=== PATIENT | female | born 1970 | race Two or more races ===

== ENCOUNTER 2018-12-06 20:37 | Emergency (ER) | payer OTHER ==
--- NOTE | 2018-12-06 21:03 | PDOC ---
History of Present Illness - General Chief Complaint: Alcohol intoxication Stated Complaint: FALL Time Seen by Provider: 12/06/18 21:02 - History of Present Illness Initial Comments: 12/06/18 21:02 . Medical Decision Making - Medical Decision Making 12/06/18 21:02 . *DC/Admit/Observation/Transfer - Referrals - Patient Instructions Printed Discharge Instructions: DI for Alcohol Abuse - Post Discharge Activity
--- NOTE | 2018-12-06 21:10 | PDOC ---
History of Present Illness - General Chief Complaint: Alcohol intoxication Stated Complaint: FALL Time Seen by Provider: 12/06/18 21:02 - History of Present Illness Initial Comments: 12/06/18 21:43 48f with no pmh presetns to the ED after slipping and falling on her face and right knee while inebriated. Doesn't usually abuse alcohol, (used to in the past) but casa admits to drinkin 4-5 cups of homemade potent punch of the fruit variety. Has multiple abrasions over the fight cheekbone and nose. Able to stand without pain. Laughs inappropriately. Past History - Past Medical History Allergies/Adverse Reactions: Allergies Allergy/AdvReac Type Severity Reaction Status Date / Time No Known Allergies Allergy Verified 12/06/18 21:35 Review of Systems - Review of Systems Able to Perform ROS?: Yes (intoxicated. ) Is the patient limited Gabonese proficient: No Constitutional: No: Symptoms Reported HEENTM: No: Symptoms Reported Respiratory: No: Symptoms reported Cardiac (ROS): No: Symptoms Reported ABD/GI: No: Symptoms Reported : No: Symptoms Reported Musculoskeletal: No: Symptoms Reported Integumentary: Yes: See HPI Neurological: Yes: See HPI All Other Systems: Reviewed and Negative *Physical Exam - Physical Exam General Appearance: Yes: Nourished, Appropriately Dressed, Intoxicated. No: Apparent Distress HEENT: positive: EOMI, RASHMI, Normal ENT Inspection Respiratory/Chest: positive: Lungs Clear, Normal Breath Sounds. negative: Chest Tender, Respiratory Distress Cardiovascular: positive: Regular Rhythm, Regular Rate, S1, S2 Musculoskeletal: positive: Normal Inspection. negative: CVA Tenderness Integumentary: positive: Normal Color, Dry, Warm ED Treatment Course - LABORATORY CBC & Chemistry Diagram: 12/06/18 21:35 12/06/18 21:35 Medical Decision Making - Medical Decision Making 12/06/18 23:07 48f with pmh of alcoholism, presents with facial injuries after fall while drunk. CT head, neck and facial bones pending. 12/07/18 00:12 Findings: CT head, neck and face negative for bleeds or fractures. Nagtive knee xray Will let patient sober up before discharge. 12/07/18 02:24 Patient sobered up, ate full meal and walked in a straight line. *DC/Admit/Observation/Transfer Diagnosis at time of Disposition: Facial trauma, Fall - Discharge Dispostion Disposition: HOME Condition at time of disposition: Improved Decision to Admit order: No - Referrals Referrals: Inessa Esposito MD [Primary Care Provider] - - Patient Instructions Printed Discharge Instructions: DI for Alcohol Abuse Additional Instructions: Come back to the emergency department for any new, worsening or concerning symptom, Follow up with your primary care physician within the next 2-3 days. - Post Discharge Activity
[2018-12-06 21:23] VITALS: TEMP 98.2; BMI 27.4
[2018-12-06 21:56] LABS: BASO % 1.5 % (0-2.0); EOS % 0.8 % (0-4.5); HEMATOCRIT 39.7 % (32.4-45.2); HEMOGLOBIN 13.1 GM/dL (10.7-15.3); MCH 31.9 pg (25.7-33.7); MCHC 32.9 g/dl (32.0-36.0); MEAN PLT VOLUME 8.1 fl (7.5-11.1); NEUT % 48.7 % (42.8-82.8); PLATELET COUNT 339 K/MM3 (134-434); RBC 4.09 M/mm3 (3.60-5.2); RDW 12.9 % (11.6-15.6)
[2018-12-06 22:37] LABS: BILIRUBIN,TOTAL 0.2 mg/dL (0.2-1); BLOOD UREA NITROGEN 16.6 mg/dL (7-18); CALCIUM 9.3 mg/dL (8.5-10.1); CREATININE 1.1 mg/dL (0.55-1.3); POTASSIUM 4.1 mmol/L (3.5-5.1); TOT PROT 7.9 g/dl (6.4-8.2)
[2018-12-07] MEDS ORDERED: IBUPROFEN 600 MG TABLET (FP) PO ONE ×2 (00:24→00:29)
--- NOTE | 2018-12-07 00:27 | PDOC ---
Documentation entered by Tigre Prieto SCRIBE, acting as scribe for Janna Plascencia MD. Janna Plascencia MD: This documentation has been prepared by the Conner burden Elijah, SCRIBE, under my direction and personally reviewed by me in its entirety. I confirm that the documentation accurately reflects all work, treatment, procedures, and medical decision making performed by me. Attending Attestation - Resident Resident Name: Koffi Gonzales - ED Attending Attestation I have performed the following: I have examined & evaluated the patient, The case was reviewed & discussed with the resident, I agree w/resident's findings & plan - HPI HPI: 12/06/18 22:11 Patient is a 48 year old female with no reported past medical history who presents to the ED s/p fall while intoxicated. Patient drank 4 drinks and slipped hitting he R knee and face on the fall. Denies Allergies: NKA - Physicial Exam PE: 12/06/18 22:15 General: clinically intoxicated, +etoh on breath. HEENT: facial abrasions on right face, superficial. EOMI, b/l nystagmus, PERRL. small abrasion to rt nasolabial fold, dentition intact, normal phonation , airway intact. Neck: neck supple, FROM Resp: CTAB, normal and even respirations, no respiratory distress CVS: RRR, no murmurs, 2+ peripheral pulses throughout, no peripheral edema Abdomen: soft, NTND, no rebound or guarding. No CVAT. Back: nontender, normal inspection and ROM MSK: no edema, PALACIOS x4, ROM intact. No clubbing or cyanosis. normal bulk and tone. Extremities: no calf tenderness Neuro: intoxicated. slurring speech. Psych: calm cooperative Skin: warm and well perfused, cap refill <2 sec, normal color, abrasion to rt face. 12/07/18 00:26 12/07/18 02:12 - Medical Decision Making 12/07/18 00:26 Vital Signs Temp Pulse Resp BP Pulse Ox 98.2 F 87 18 142/119 H 97 12/06/18 20:45 12/06/18 20:45 12/06/18 20:45 12/06/18 20:45 12/06/18 20:45 VS hypertensive, otherwise no acute distress no systemic findings. CT head, c spine and facial neg for fx/subluxation, no e/o head bleed or injuries secondary survey unremarkable, abdomen and chest nontender. exam as documented. facial abrasions cleaned. Patient demonstrates clinical evidence for alcohol intoxication. The patient admits to intentional heavy drinking of alcohol and denies fall or injury. The patient also denies drug use. Some of the history and physical exam is limited due to the state of intoxication. All clothes were removed, all parts of the body were evaluated and there is no evidence of acute trauma. The plan is to observe patient in the ED until clinical sobriety is reached and reassess history and physical examination. pt monitored closely in the ED, sobriety hold. remained comfortable, no acute events, VS remain stable, though hypertensive. - told to f/u HTN and clinical recheck, as no symptoms and no e/o end organ damange, unremarkable ekg, sinus rhythm.. at time of discharge, clinically improved, sober, speech clear, gait stable. no acute neuro changes, normal mental status. no evidence of SI or HI or psychosis. discharge in stable condition. prompt follow up encouraged. 12/07/18 00:27 12/08/18 09:17 12/08/18 09:17 12/08/18 09:18
[2018-12-07] MEDS ORDERED: DIPHTH,PERTUSS(ACELL),TET 0.5 ML DISP.SYRIN IM ONE ×2 (02:07→02:33)
[2018-12-07 03:03] VITALS: BP 151/107; PULSE 84
--- NOTE | 2018-12-07 09:37 | EKG ---
Test Reason : Blood Pressure : / mmHG Vent. Rate : 089 BPM Atrial Rate : 089 BPM P-R Int : 156 ms QRS Dur : 082 ms QT Int : 376 ms P-R-T Axes : 045 011 010 degrees QTc Int : 457 ms NORMAL SINUS RHYTHM SEPTAL INFARCT , AGE UNDETERMINED ABNORMAL ECG NO PREVIOUS ECGS AVAILABLE Confirmed by LIVAN WELLS, PAULETTE ([id number]) on 12/07/2018 9:36:41 AM Referred By: Confirmed By:PAULETTE LICONA MD
== END 2018-12-07 02:40 | disposition home or self-care (01) ==
LOC: JER 20:37
PROC: 3E0234Z Introduction of Serum, Toxoid and Vaccine into Muscle, Percutaneous Approach (ICD-10-PCS; principal; 2018-12-06)
DX: S00.81XA Abrasion of other part of head, initial encounter (principal); M25.561 Pain in right knee; F10.120 Alcohol abuse with intoxication, uncomplicated; Y90.9 Presence of alcohol in blood, level not specified; W18.39XA Other fall on same level, initial encounter; Y93.89 Activity, other specified; Y92.89 Other specified places as the place of occurrence of the external cause; Y99.8 Other external cause status
CPT/HCPCS: 36415; 70450-TC; 70486-TC; 72125-TC; 73562-TC-RT-FY; 80053; 84484; 84703; 85025; 90715; 93005; 93010; 99284-25